=== PATIENT | female | born 1995 | race Caucasian/White ===

== ENCOUNTER 2020-02-24 11:09 | Emergency (ER) | payer SELFPAY ==
[~2020-02-24] VITALS: Ht 175.3 cm; Wt 109.0 kg
[2020-02-24 12:13] LABS: BILIRUBIN,URINE NEGATIVE (NEG); CLARITY,URINE CLEAR; COLOR,URINE YELLOW; NITRITE,URINE NEGATIVE (NEG); PROTEIN,URINE NEGATIVE (NEG-TRACE); UROBILINOGEN,URINE 0.2 mg/dL (0.2 mg/dL)
[2020-02-24 12:24] LABS: SQUAMOUS EPITHELIAL CELL,UR MOD /LPF
[2020-02-24 12:25] LABS: BACTERIA,URINE FEW /HPF (0-FEW); RBC,URINE 0 /HPF (0-2)
[2020-02-24] MEDS ORDERED: cefTRIAXone IM 250 MG VIAL IM ONE (12:45)
--- NOTE | 2020-02-24 12:56 | PHYS DOC ---
Past Medical History Past Medical History: Anxiety, Depression Past Surgical History: Other Additional Past Surgical Histo: Complications during vaginal delivery Smoking Status: Current Every Day Smoker Alcohol Use: Occasionally General Adult EDM: Chief Complaint: VAGINAL PROBLEM HPI: HPI: Patient is a 24 year old morbidly obese female who presents to the emergency department with complaints of pelvic pain with intermittent light vaginal bleeding since yesterday. Patient states that she has noticed small blood clots in the bloody vaginal discharge. Patient reports that she was on Depo-Provera until 4 to 5 months ago when she lost her health insurance. Patient reports that she has had unprotected intercourse and reports concerns of a possible sexually transmitted infection and possible . She denies any back pain, upper abdominal pain, nausea, vomiting, diarrhea, cough, shortness of breath, fever, or sore throat. Patient denies any irregular vaginal discharge or vaginal odor prior to the onset of the vaginal bleeding. She currently rates her pelvic pain a 6 out of 10 on the pain scale describes it as a sharp stabbing sensation. She denies any alleviating or exacerbating factors, she denies any radiation of the pain. Review of Systems: Review of Systems: Constitutional: Denies fever or chills. [] HENT: Denies nasal congestion or sore throat. [] Respiratory: Denies cough or shortness of breath. [] Cardiovascular: Denies chest pain or edema. [] GI: Denies abdominal pain, nausea, vomiting, or diarrhea. [] : Denies dysuria,, hematuria, or increased urinary frequency; see HPI [] Musculoskeletal: Denies back pain or joint pain. [] Integument: Denies rash. [] Neurologic: Denies headache Psychiatric: Denies depression or anxiety. [] Heart Score: Risk Factors: Risk Factors: DM, Current or recent (<one month) smoker, HTN, HLP, family history of CAD, obesity. Risk Scores: Score 0 - 3: 2.5% MACE over next 6 weeks - Discharge Home Score 4 - 6: 20.3% MACE over next 6 weeks - Admit for Clinical Observation Score 7 - 10: 72.7% MACE over next 6 weeks - Early Invasive Strategies Current Medications: Current Medications Medications (Trade) Dose Ordered Sig/Irvin Start Time Stop Time Status Last Admin Dose Admin Azithromycin (Zithromax) 1,000 mg 1X ONCE 02/24/20 13:00 02/24/20 13:01 Ceftriaxone Sodium (Rocephin Im) 250 mg 1X ONCE 02/24/20 12:45 02/24/20 12:46 UNV Allergies: Allergies: Allergies Coded Allergies Type Severity Reaction Last Updated Verified Penicillins Allergy Severe Throat swelling 02/24/20 Yes amoxicillin Allergy Severe Throat swelling 02/24/20 Yes Physical Exam: PE: Constitutional: Well developed, well nourished, no acute distress, non-toxic appearance, morbidly obese HENT: Normocephalic, atraumatic, bilateral external ears normal, nose normal. Eyes: PERRLA, EOMI, conjunctiva normal, no discharge. Neck: Normal range of motion, no stridor. 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 Back: No tenderness Extremities: No cyanosis, ROM intact, no edema. Neurologic: Alert and oriented X 3, no focal deficits noted. Psychologic: Affect normal, judgement normal, mood normal. Current Patient Data: Labs: Laboratory Tests Test 02/24/20 12:00 02/24/20 12:07 Urine Collection Type Unknown Urine Color Yellow Urine Clarity Clear Urine pH 7.0 (<5.0-8.0) Urine Specific [place] 1.020 (1.000-1.030) Urine Protein Negative mg/dL (NEG-TRACE) Urine Glucose (UA) Negative mg/dL (NEG) Urine Ketones (Stick) Negative mg/dL (NEG) Urine Blood Large (NEG) Urine Nitrite Negative (NEG) Urine Bilirubin Negative (NEG) Urine Urobilinogen Dipstick 0.2 mg/dL (0.2 mg/dL) Urine Leukocyte Esterase Small (NEG) Urine RBC 0 /HPF (0-2) Urine WBC 5-10 /HPF (0-4) Urine Squamous Epithelial Cells Mod /LPF Urine Bacteria Few /HPF (0-FEW) Urine Mucus Slight /LPF POC Urine HCG, Qualitative Hcg negative (Negative) Microbiology 02/24/20 Wet Prep - Final, Complete Vital Signs: Vital Signs Date Time Temp Pulse Resp B/P (MAP) Pulse Ox O2 Delivery O2 Flow Rate FiO2 02/24/20 11:15 97.9 88 17 118/64 (82) 98 Room Air 97.9 EKG: EKG: [] Radiology/Procedures: Radiology/Procedures: PROCEDURE: PELVIS ULTRASOUND Pelvic ultrasound 02/24/2020 CLINICAL HISTORY: Pelvic pain. Cervical motion tenderness. TECHNIQUE: Using the distended urinary bladder as a sonographic window, a real-time ultrasound examination of the pelvis was performed. Multiple images were obtained. FINDINGS: The uterus is within normal limits in size and echogenicity. It measures 8.2 x 4.6 x 3.5 cm in longitudinal, transverse, and AP dimensions. The endometrial echo complex measures 2 mm in thickness which is within normal limits. No focal abnormality uterus is seen. Both ovaries are within normal limits in size and echogenicity. The right ovary measures 3.3 x 3.6 x 2.2 cm in size. The Left ovary measures 3.6 x 2 3.3 x 2.2 cm in size. Normal color-flow and pulse Doppler imaging of both ovaries is noted. No adnexal mass is seen. No free fluid is noted. IMPRESSION: Negative study.[] Course & Med Decision Making: Course & Med Decision Making Pertinent Labs and Imaging studies reviewed. (See chart for details) 24-year-old female presents to the emergency department with irregular vaginal bleeding, pelvic pain, and concerns of STI. Patient was treated prophylactically for suspected gonorrhea and chlamydia infection. Wet mount was ordered, UA was ordered, UCG is negative, and a pelvic ultrasound was ordered for cervical motion tenderness to rule out PID. Ultrasound of the pelvis revealed no acute findings. Wet mount was concerning for bacterial vaginosis. Gonorrhea and chlamydia testing is pending. Patient was treated prophylactically with 250 mg of IM Rocephin, and 1 g of PO Zithromax. Patient was instructed to avoid having intercourse until the results of gonorrhea and chlamydia testing are available, patient was notified that these results would not be available for 48 hours. If one or both of these tests is positive, patient needs to refrain from intercourse for approximately 1 week following the treatment of any current partners. Prescription written for Flagyl. Patient instructed to follow-up with OB or [facility] doctor symptoms persist, return to the ER if fever develops or symptoms worsen. Patient verbalized an understanding of home care, medications, follow-up, and return to ED instructions and was in agreement with the plan of care. [] Herman Disclaimer: Herman Disclaimer: This electronic medical record was generated, in whole or in part, using a voice recognition dictation system. Departure Departure Impression: Primary Impression: Bacterial vaginosis Additional Impressions: Contact with and (suspected) exposure to infections with a predominantly sexual mode of transmission Pelvic pain Vaginal bleeding, abnormal Disposition: HOME, SELF-CARE Condition: STABLE Referrals: NO PCP (PCP) Patient Instructions: Bacterial Vaginosis, [id number], Pelvic Pain, Female, [id number], Sexually Transmitted Disease, [id number] Additional Instructions: Fill the prescription and use it as directed. You can take Tylenol or ibuprofen as needed for pain. Follow-up with your primary care doctor or [facility] MANAGER to discuss vaginal bleeding concerns and need for control. Return to the emergency room if you develop a fever your symptoms worsen. Scripts Metronidazole (FLAGYL) 500 Mg Tablet 1 TAB PO BID, #14 TAB 0 Refills Prov: THEO MASON APRN 02/24/20 Justicifation of Admission Dx: Justifications for Admission: Justification of Admission Dx: N/A THEO MASON [employer] Feb 24, 2020 12:56
[2020-02-24 12:57] VITALS: BP 107/62
[2020-02-24] MEDS ORDERED: AZITHROMYCIN 250 MG TABLET. PO ONE (13:00)
--- NOTE | 2020-02-24 14:12 | RAD ---
Pelvic ultrasound 02/24/2020 CLINICAL HISTORY: Pelvic pain. Cervical motion tenderness. TECHNIQUE: Using the distended urinary bladder as a sonographic window, a real-time ultrasound examination of the pelvis was performed. Multiple images were obtained. FINDINGS: The uterus is within normal limits in size and echogenicity. It measures 8.2 x 4.6 x 3.5 cm in longitudinal, transverse, and AP dimensions. The endometrial echo complex measures 2 mm in thickness which is within normal limits. No focal abnormality uterus is seen. Both ovaries are within normal limits in size and echogenicity. The right ovary measures 3.3 x 3.6 x 2.2 cm in size. The Left ovary measures 3.6 x 2 3.3 x 2.2 cm in size. Normal color-flow and pulse Doppler imaging of both ovaries is noted. No adnexal mass is seen. No free fluid is noted. IMPRESSION: Negative study. Electronically signed by: Kojo Regalado MD (02/24/2020 2:09 PM) [id number]
[2020-02-24] MEDS ORDERED: METR500T PO (14:40)
== END 2020-02-24 15:35 | disposition home or self-care (01) ==
LOC: ER 11:09
DX: N76.0 Acute vaginitis (principal); B96.89 Other specified bacterial agents as the cause of diseases classified elsewhere; Z20.818 Contact with and (suspected) exposure to other bacterial communicable diseases; R10.2 Pelvic and perineal pain; N93.9 Abnormal uterine and vaginal bleeding, unspecified; F41.9 Anxiety disorder, unspecified; F32.9 Major depressive disorder, single episode, unspecified; F17.200 Nicotine dependence, unspecified, uncomplicated; E66.01 Morbid (severe) obesity due to excess calories; Z68.35 Body mass index [BMI] 35.0-35.9, adult; Z98.890 Other specified postprocedural states; Z88.1 Allergy status to other antibiotic agents; Z88.0 Allergy status to penicillin
CPT/HCPCS: 76856; 81001; 81025; 87086; 87491; 87591; 99285; Q0111